=== PATIENT | female | born 1960 | race Two or more races ===

== ENCOUNTER 2021-12-31 07:43 | Outpatient (CLI) | payer OTHER | END 2021-12-31 08:26 | disposition home or self-care (01) | LOC: SONOGRAMA 07:43 | PROVIDERS: ATTEND Orthopaedic Surgery Orthopaedic Surgery of the Spine | DX: E04.2 Nontoxic multinodular goiter (principal) ==

== ENCOUNTER 2024-02-05 07:22 | Outpatient (CLI) | payer OTHER | END 2024-02-05 07:32 | disposition home or self-care (01) | LOC: TOM 07:22 | PROVIDERS: ATTEND Student in an Organized Health Care Education/Training Program | DX: Z12.11 Encounter for screening for malignant neoplasm of colon (principal) ==